=== PATIENT | male | born 1970 | race Caucasian/White ===

== ENCOUNTER → 2020-06-15 | Outpatient (CLI) | payer OTHER ==
[~2020-06-15] MED LIST: ALPRAZOLAM0.5 MG PO; DEXILANT30 MG PO; MIRALAX17 GM PO; NEURONTIN400 MG PO; NORCO 7.5-3251 EACH PO; PRINIVIL10 MG PO; PROTONIX40 MG PO; STOOL SOFTENER100 MG PO; SYNTHROID75 MCG PO; TYLENOL 500 MG500 MG PO; VITAMIN D32000 UNI1 PO; XARELTO20 MG PO; ZANTAC300 MG PO; rocephin
== END ==
LOC: KOH-I 13:54
DX: L89.154 Pressure ulcer of sacral region, stage 4 (principal); M86.8X8 Other osteomyelitis, other site
CPT/HCPCS: 72192

== ENCOUNTER 2021-05-10 10:49 | Inpatient (IN) | payer OTHER ==
[~2021-05-10] VITALS: Ht 180.3 cm; Wt 68.0 kg
[~2021-05-10 10:49] MED LIST changes: -NORCO 7.5-3251 EACH PO; -STOOL SOFTENER100 MG PO; -SYNTHROID75 MCG PO
[2021-05-10 12:54] LABS: HEMOGLOBIN 12.6 gm/dl (14.0-17.5); RED BLOOD COUNT 4.92 M/UL (4.20-5.50)
[2021-05-10 13:37] LABS: BUN/CREATININE RATIO 30 (0-10)
[2021-05-10] MEDS ORDERED: GABAPENTIN800 MG PO (15:30)
[2021-05-10] MEDS ORDERED: TRAZODONE HCL50 MG PO (15:33)
[2021-05-10] MEDS ORDERED: VENLAFAXINE HCL75 M1 PO (15:33)
[2021-05-10] MEDS ORDERED: METOPROLOL SUCC25 MG PO (15:34)
[2021-05-10] MEDS ORDERED: VITAMIN C500 M4 PO (15:34)
[2021-05-10] MEDS ORDERED: FAMOTIDINE20 MG PO (15:34)
[2021-05-10] MEDS ORDERED: SYNTHROID50 MCG PO (20:43)
[2021-05-10] MEDS ORDERED: STOOL SOFTENER100 MG PO (20:44)
[2021-05-10] MEDS ORDERED: HYDROCODON-ACE1 EAC6 PO (20:49)
[2021-05-11 06:52] LABS: WHITE BLOOD COUNT 6.5 K/UL (4.5-11.0)
[2021-05-11 07:00] LABS: HEMOGLOBIN 10.2 gm/dl (14.0-17.5); RED BLOOD COUNT 4.1 M/UL (4.20-5.50)
[2021-05-11 07:15] LABS: BUN/CREATININE RATIO 31 (0-10)
[2021-05-12 05:27] LABS: HEMOGLOBIN 10.2 gm/dl (14.0-17.5); RED BLOOD COUNT 4.08 M/UL (4.20-5.50); WHITE BLOOD COUNT 4.9 K/UL (4.5-11.0)
[2021-05-12 05:49] LABS: BUN/CREATININE RATIO 28 (0-10)
[2021-05-12] MEDS ORDERED: LEVOFLOXACIN500 MG PO (09:55)
== END 2021-05-12 17:29 | disposition home health service (06) | DRG 300 ==
LOC: ER1 10:49 → M/S 14:53 → CDU 14:53 → M/S 21:00
PROVIDERS: Nurse Practitioner; Physician Assistant Medical; ADMIT Emergency Medicine
DX: I73.9 Peripheral vascular disease, unspecified (principal); L03.116 Cellulitis of left lower limb; L97.829 Non-pressure chronic ulcer of other part of left lower leg with unspecified severity; Z20.822 Contact with and (suspected) exposure to COVID-19; L97.819 Non-pressure chronic ulcer of other part of right lower leg with unspecified severity; G82.20 Paraplegia, unspecified; E03.9 Hypothyroidism, unspecified; Z96.641 Presence of right artificial hip joint; I10 Essential (primary) hypertension; K21.9 Gastro-esophageal reflux disease without esophagitis; Z86.718 Personal history of other venous thrombosis and embolism; Z79.01 Long term (current) use of anticoagulants; Z99.3 Dependence on wheelchair; Z74.01 Bed confinement status; Z87.828 Personal history of other (healed) physical injury and trauma; Z93.3 Colostomy status; Z79.810 Long term (current) use of selective estrogen receptor modulators (SERMs); Z88.8 Allergy status to other drugs, medicaments and biological substances
CPT/HCPCS: 36415; 73630; 80048; 80053; 80202; 83605; 83735; 85025; 85027; 85652; 86140; 87040; 87070; 87077; 87186; 87205; 93925; 96374; 96375; 99285; J1170; J1885; J2543; J3370; J7030; J7070; U0002

== ENCOUNTER → 2021-06-06 | Outpatient (CLI) | payer OTHER ==
[~2021-06-06] MED LIST changes: +FAMOTIDINE20 MG PO; +GABAPENTIN800 MG PO; +HYDROCODON-ACE1 EAC6 PO; +LEVOFLOXACIN500 MG PO; +METOPROLOL SUCC25 MG PO; +STOOL SOFTENER100 MG PO; +SYNTHROID50 MCG PO; +TRAZODONE HCL50 MG PO; +VENLAFAXINE HCL75 M1 PO; +VITAMIN C500 M4 PO
== END ==
LOC: WCC 08:06
DX: L89.622 Pressure ulcer of left heel, stage 2 (principal); L89.44 Pressure ulcer of contiguous site of back, buttock and hip, stage 4; G82.21 Paraplegia, complete; Z74.1 Need for assistance with personal care; I10 Essential (primary) hypertension; Z87.891 Personal history of nicotine dependence; Z93.3 Colostomy status; L89.892 Pressure ulcer of other site, stage 2; L89.894 Pressure ulcer of other site, stage 4

== ENCOUNTER → 2021-06-15 | Outpatient (CLI) | payer OTHER | LOC: WCC 07:28 | DX: L89.894 Pressure ulcer of other site, stage 4 (principal); L89.892 Pressure ulcer of other site, stage 2; S91.302A Unspecified open wound, left foot, initial encounter; S91.301A Unspecified open wound, right foot, initial encounter; S91.102A Unspecified open wound of left great toe without damage to nail, initial encounter; L89.44 Pressure ulcer of contiguous site of back, buttock and hip, stage 4; G82.21 Paraplegia, complete; Z93.3 Colostomy status; Z74.1 Need for assistance with personal care; L89.622 Pressure ulcer of left heel, stage 2; I10 Essential (primary) hypertension ==

== ENCOUNTER → 2021-06-22 | Outpatient (CLI) | payer OTHER | END | disposition home or self-care (01) | LOC: WCC 07:49 | PROC: 0VB50ZZ Excision of Scrotum, Open Approach (ICD-10-PCS; principal; 2021-06-22) | DX: L89.899 Pressure ulcer of other site, unspecified stage (principal); L89.44 Pressure ulcer of contiguous site of back, buttock and hip, stage 4; L89.622 Pressure ulcer of left heel, stage 2; L97.512 Non-pressure chronic ulcer of other part of right foot with fat layer exposed; L97.522 Non-pressure chronic ulcer of other part of left foot with fat layer exposed; L97.422 Non-pressure chronic ulcer of left heel and midfoot with fat layer exposed; G82.21 Paraplegia, complete; I10 Essential (primary) hypertension; M86.9 Osteomyelitis, unspecified; Z86.718 Personal history of other venous thrombosis and embolism; Z93.3 Colostomy status ==

== ENCOUNTER → 2021-07-10 | Outpatient (CLI) | payer OTHER | LOC: WCC 07:38 | DX: L89.894 Pressure ulcer of other site, stage 4 (principal); L89.892 Pressure ulcer of other site, stage 2; S91.102A Unspecified open wound of left great toe without damage to nail, initial encounter; S91.301A Unspecified open wound, right foot, initial encounter; I10 Essential (primary) hypertension; G82.21 Paraplegia, complete; Z93.3 Colostomy status; Z74.1 Need for assistance with personal care; X58.XXXA Exposure to other specified factors, initial encounter | CPT/HCPCS: 97597 ==

== ENCOUNTER 2021-08-20 18:47 | Inpatient (IN) | payer OTHER ==
[~2021-08-20] VITALS: Ht 147.3 cm; Wt 54.4 kg
[~2021-08-20 18:47] MED LIST changes: +SENNA PLUS 8.61 EACH PO; -STOOL SOFTENER100 MG PO; -TYLENOL 500 MG500 MG PO; +TYLENOL 8 HOUR650 MG PO; +XARELTO 10 MG T10 MG PO; -XARELTO20 MG PO
[2021-08-20 19:24] LABS: HEMOGLOBIN 10.3 gm/dl (14.0-17.5); RED BLOOD COUNT 4.5 M/UL (4.20-5.50); WHITE BLOOD COUNT 11.9 K/UL (4.5-11.0)
[2021-08-20 19:45] LABS: BUN/CREATININE RATIO 20 (0-10)
[2021-08-21] MEDS ORDERED: MIRALAX17 GM PO (10:10)
[2021-08-21] MEDS ORDERED: FERROUS SULFAT325 MG PO (10:10)
[2021-08-21] MEDS ORDERED: NALOXONE HCL4 MG (10:10)
[2021-08-21] MEDS ORDERED: VITAMIN B-121000 MCG PO (10:11)
[2021-08-21] MEDS ORDERED: METHOCARBAMOL500 MG PO (10:42)
[2021-08-21] MEDS ORDERED: ROXICODONE5 MG PO (10:44)
[2021-08-22 07:58] LABS: BUN/CREATININE RATIO 10 (0-10)
[2021-08-22 09:27] LABS: HEMOGLOBIN 7.9 gm/dl (14.0-17.5); RED BLOOD COUNT 3.44 M/UL (4.20-5.50); WHITE BLOOD COUNT 3.4 K/UL (4.5-11.0)
[2021-08-23 08:00] LABS: HEMOGLOBIN 8.1 gm/dl (14.0-17.5); RED BLOOD COUNT 3.48 M/UL (4.20-5.50)
[2021-08-24 12:50] LABS: HEMOGLOBIN 8.4 gm/dl (14.0-17.5); RED BLOOD COUNT 3.63 M/UL (4.20-5.50); WHITE BLOOD COUNT 4.4 K/UL (4.5-11.0)
[2021-08-24 13:16] LABS: BUN/CREATININE RATIO 16 (0-10)
[2021-08-25 04:54] LABS: HEMOGLOBIN 8.5 gm/dl (14.0-17.5); RED BLOOD COUNT 3.73 M/UL (4.20-5.50); WHITE BLOOD COUNT 4.2 K/UL (4.5-11.0)
[2021-08-25 05:00] LABS: BUN/CREATININE RATIO 24 (0-10)
[2021-08-26 04:58] LABS: HEMOGLOBIN 8.5 gm/dl (14.0-17.5); RED BLOOD COUNT 3.7 M/UL (4.20-5.50); WHITE BLOOD COUNT 4.4 K/UL (4.5-11.0)
[2021-08-26 05:27] LABS: BUN/CREATININE RATIO 19 (0-10)
[2021-08-27 02:24] LABS: HEMOGLOBIN 9.7 gm/dl (14.0-17.5)
[2021-08-27 02:33] LABS: RED BLOOD COUNT 4.18 M/UL (4.20-5.50); WHITE BLOOD COUNT 6.1 K/UL (4.5-11.0)
[2021-08-27 02:52] LABS: BUN/CREATININE RATIO 29 (0-10)
[2021-08-28 09:10] LABS: HEMOGLOBIN 9.8 gm/dl (14.0-17.5); RED BLOOD COUNT 4.24 M/UL (4.20-5.50)
[2021-08-28 09:11] LABS: WHITE BLOOD COUNT 8.2 K/UL (4.5-11.0)
[2021-08-28 09:37] LABS: BUN/CREATININE RATIO 26 (0-10)
[2021-08-29 06:45] LABS: HEMOGLOBIN 9.1 gm/dl (14.0-17.5); RED BLOOD COUNT 3.98 M/UL (4.20-5.50)
[2021-08-29 06:55] LABS: WHITE BLOOD COUNT 5.8 K/UL (4.5-11.0)
[2021-08-29 07:21] LABS: BUN/CREATININE RATIO 40 (0-10)
[2021-08-29] MEDS ORDERED: XARELTO 10 MG T10 MG PO (14:07)
[2021-08-29] MEDS ORDERED: HYDROCODON-ACE1 EAC4 PO (14:07)
[2021-08-29] MEDS ORDERED: TAB-A-VITE TA400 MC1 PO (14:07)
[2021-08-29] MEDS ORDERED: ACETAMINOPHEN325 MG PO (14:07)
--- NOTE | 2021-08-29 15:55 | NUR ---
report given to ozzy admitting nurse.
[2021-08-29] MEDS ORDERED: VANCOMYCIN750 MG/151 IV (16:23)
[2021-08-29] MEDS ORDERED: INVANZ 1 GM VIAL1 GM IV (16:24)
== END 2021-08-29 18:47 | DRG 896 ==
LOC: ER1 18:47 → CDU 21:22 → CCU 21:22 → M/S 21:22 → CCU 22:55 → PROG CARE 08-26 09:34 → M/S 08-27 14:08
PROVIDERS: Family Medicine; Internal Medicine; ADMIT Internal Medicine
DX: F15.129 Other stimulant abuse with intoxication, unspecified (principal); G92.8 Other toxic encephalopathy; T87.44 Infection of amputation stump, left lower extremity; Y83.8 Other surgical procedures as the cause of abnormal reaction of the patient, or of later complication, without mention of misadventure at the time of the procedure; E87.6 Hypokalemia; F10.129 Alcohol abuse with intoxication, unspecified; I73.9 Peripheral vascular disease, unspecified; Z20.822 Contact with and (suspected) exposure to COVID-19; L98.499 Non-pressure chronic ulcer of skin of other sites with unspecified severity; W18.30XA Fall on same level, unspecified, initial encounter; D64.9 Anemia, unspecified; F17.220 Nicotine dependence, chewing tobacco, uncomplicated; E03.9 Hypothyroidism, unspecified; K21.9 Gastro-esophageal reflux disease without esophagitis; Z89.612 Acquired absence of left leg above knee; Z89.611 Acquired absence of right leg above knee; Z93.3 Colostomy status; Z87.828 Personal history of other (healed) physical injury and trauma; Z86.718 Personal history of other venous thrombosis and embolism; Z79.01 Long term (current) use of anticoagulants; Z93.0 Tracheostomy status; Z83.3 Family history of diabetes mellitus; Z82.49 Family history of ischemic heart disease and other diseases of the circulatory system; Z98.890 Other specified postprocedural states
CPT/HCPCS: 36415; 71045; 80053; 80307; 81001; 82140; 82550; 82553; 83605; 83735; 84100; 84132; 84484; 84550; 85025; 85027; 86140; 87070; 87205; 97161; 97166; 99285; A6212; C9113; G0480; J0696; J1335; J1630; J1650; J2060; J2550; J3370; J3411; J3475; J3480; J7030; J7040; J7070; J7120; U0002